=== PATIENT | male | born 1965 | race Two or more races ===

== ENCOUNTER 2020-03-27 18:14 | Emergency (ER) | payer MEDICAID ==
[~2020-03-27] VITALS: Ht 175.3 cm; Wt 102.6 kg
[2020-03-27 18:16] VITALS: BP 138/80
--- NOTE | 2020-03-27 18:25 | NUR ---
UA cup collected and sent to lab.
[2020-03-27 18:42] LABS: MICROSCOPIC NOT IND
--- NOTE | 2020-03-27 18:47 | NUR ---
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
--- NOTE | 2020-03-27 19:38 | NUR ---
PT LAYING BACK IN BED, RESPIRATIONS EVEN AND UNLABORED. FRIEND AT BEDSIDE. AWAITING RECHECK.
--- NOTE | 2020-03-27 20:00 | NUR ---
erpa in to discuss pt's dc.
== END 2020-03-27 20:27 | disposition home or self-care (01) ==
LOC: ED 20:18
DX: M54.5 Low back pain (principal)
CPT/HCPCS: 81003; 99283